=== PATIENT | female | born 1980 | race Caucasian/White ===

== ENCOUNTER 2021-06-07 20:09 | Emergency (ER) | payer OTHER ==
[~2021-06-07] VITALS: Ht 172.7 cm; Wt 78.0 kg
[2021-06-07] MEDS ORDERED: CELEXA 10 MG TA10 M1 PO (20:29)
[2021-06-07] MEDS ORDERED: ZOFRAN ODT4 MG PO (22:17)
[2021-06-07] MEDS ORDERED: CEPHALEXIN500 MG PO (22:17)
[2021-06-07 22:26] VITALS: BP 120/74
== END 2021-06-07 22:27 | disposition home or self-care (01) ==
LOC: M.ERS 20:09
DX: S01.81XA Laceration without foreign body of other part of head, initial encounter (principal); S09.90XA Unspecified injury of head, initial encounter; Z79.899 Other long term (current) drug therapy; W01.0XXA Fall on same level from slipping, tripping and stumbling without subsequent striking against object, initial encounter; Y93.89 Activity, other specified; Y92.89 Other specified places as the place of occurrence of the external cause; Y99.8 Other external cause status